=== PATIENT | female | born 1945 | race Caucasian/White ===

== ENCOUNTER 2018-03-10 19:19 | Inpatient (IN) | payer MEDICARE, OTHER ==
[2018-03-10] VITALS (9 sets, daily range): BP systolic 134–146; BP diastolic 78–86; BMI 25.5
[~2018-03-10] VITALS: Ht 165.1 cm; Wt 70.5 kg
--- NOTE | ~2018-03-10 | MORECARE ---
CASE MANAGEMENT DISCHARGE SUMMARY PATIENT: CHERI SORIANO UNIT: [id number] ADM DATE: 03/10/18 AGE: 73 : 45 SEX: F ROOM/BED: D.1213 AUTHOR: RITCHIEDOC PHYSICIAN: REFERRING PHYSICIAN: ROMEO STEINER MD DATE OF SERVICE: 03/17/18 Discharge Plan Patient Name: CHERI SORIANO Facility: [facility]:[place] : 1945 Planned Disposition: Home or Self Care Anticipated Discharge Date: Discharge Date: Expected LOS: Initial Reviewer: [email or web address] Initial Review Date: 03/15/2018 Generated: 03/17/18 3:20 pm Comments DCP- Discharge Planning Updated by [email or web address]: Jennifer Daniels on 03/17/18 1:[address] IMM explained and served 03/17/18 @ 1300 CM will continue to follow and assist as needed with discharge plans / needs DCP- Discharge Planning Updated by [email or web address]: Jennifer Daniels on 03/15/18 5:[address] Patient Name: CHERI SORIANO Admission Status: Elective Accout number: [id number] Admission Date: 03-10-2018 : 1945 Admission Diagnosis:ACUTE RESPIRATORY FAILURE WITH HYPOXIA Attending: ROMEO STEINER Current LOS: 5 Anticipated DC Date: Planned Disposition: Home or Self Care Primary Insurance: MEDICARE A & B Discharge Planning Comments: CM met with patient at bedside after obtaining verbal consent. Patient states she plans on returning home after discharge. Patient states she will have family transport him home via private vehicle. Patient states that her son will be staying with her a few nights after discharge. Patient denies any discharge needs at this time. Patient may need home 02 setup if still required upon discharge. CM will continue to follow and assist as needed for discharge planning / needs. Physics Instructor: Jennifer Daniels DCPIA - Discharge Planning Initial Assessment Updated by [email or web address]: Jennifer Daniels on 03/15/18 5:59 pm * Is the patient Alert and Oriented? Yes * How many steps to enter\exit or inside your home? * PCP Dr. Whitney * Pharmacy [facility] * Preadmission Environment Home Alone * ADLs Independent * Equipment None * Other Equipment has access to walker and cane * List name and contact numbers for known caregivers / representatives who currently or will assist patient after discharge: Clara Mead [phone] * Verbal permission to speak to the caregivers and representatives has been obtained from the patient. N/A * Community resources currently utilized None * Additional services required to return to the preadmission environment? No * Can the patient safely return to the preadmission environment? Yes * Has this patient been hospitalized within the prior 30 days at any hospital? No Coverage Notice Reviewer: [email or web address] Mir Daniels Notice Issued Date-Time: 03/17/2018 13:00 Notice Type: IM Discharge Notice Notice Delivered To: Patient Relationship to Patient: Self Law Professor Name: Delivery Method: HAND - Hand Delivered Esperanza Days: Prior Verbal Notification: Recipient Understood Notice: Yes Recipient Signature: Yes Med Rec Note Co-signed by Attending: Coverage Notice Comment: Last DP export: 03/15/18 5:07 Patient Name: CHERI SORIANO Page [id number] at 1420 All edits/amendments must be made on the electronic document DICTATION DATE: 03/17/181418 SITE SAFETY MANAGER: HEMANTH 03/17/181418 RPT#: [id number] DC DATE: STATUS: ADM IN [facility] [address] [place] [address] END OF REPORT
--- NOTE | ~2018-03-10 | MORECARE ---
CASE MANAGEMENT DISCHARGE SUMMARY PATIENT: CHERI SORIANO UNIT: [id number] ADM DATE: 03/10/18 AGE: 73 : 45 SEX: F ROOM/BED: D.1213 AUTHOR: LUIS FERNANDO DUGAN PHYSICIAN: REFERRING PHYSICIAN: ROMEO STEINER MD DATE OF SERVICE: 03/15/18 Discharge Plan Patient Name: CHERI SORIANO [facility] 1945 Planned Disposition: Home or Self Care Anticipated Discharge Date: Discharge Date: Expected LOS: Initial Reviewer: [email or web address] Initial Review Date: 03/15/2018 Generated: 03/15/18 7:00 pm DCPIA - Discharge Planning Initial Assessment Updated by [email or web address]: Jennifer Daniels on 03/15/18 5:59 pm * Is the patient Alert and Oriented? Yes * How many steps to enter\exit or inside your home? * PCP Dr. Whitney * Pharmacy [facility] * Preadmission Environment Home Alone * ADLs Independent * Equipment None * Other Equipment has access to walker and cane * List name and contact numbers for known caregivers / representatives who currently or will assist patient after discharge: Clara [place] [phone] * Verbal permission to speak to the caregivers and representatives has been obtained from the patient. N/A * Community resources currently utilized None * Additional services required to return to the preadmission environment? No * Can the patient safely return to the preadmission environment? Yes * Has this patient been hospitalized within the prior 30 days at any hospital? No Patient Name: CHERI SORIANO Page [id number] at 1800 All edits/amendments must be made on the electronic document DICTATION DATE: 03/15/181758 NAVAL AIRCREWMAN TACTICAL HELICOPTER: HEMANTH 03/15/181758 RPT#: [id number] DC DATE: STATUS: ADM IN [facility] [address] [place] [address] END OF REPORT
--- NOTE | ~2018-03-10 | MORECARE ---
CASE MANAGEMENT DISCHARGE SUMMARY PATIENT: CHERI SORIANO UNIT: [id number] ADM DATE: 03/10/18 AGE: 73 : 45 SEX: F ROOM/BED: D.1213 AUTHOR: RITCHIEDOC PHYSICIAN: REFERRING PHYSICIAN: ROMEO STEINER MD DATE OF SERVICE: 03/15/18 Discharge Plan Patient Name: CHERI SORIANO Facility: [facility]:[place] : 1945 Planned Disposition: Home or Self Care Anticipated Discharge Date: Discharge Date: Expected LOS: Initial Reviewer: [email or web address] Initial Review Date: 03/15/2018 Generated: 03/15/18 7:07 pm Comments DCP- Discharge Planning Updated by [email or web address]: Jennifer Daniels on 03/15/18 5:[address] Patient Name: CHERI SORIANO Admission Status: Elective Accout number: [id number] Admission Date: 03-10-2018 : 1945 Admission Diagnosis:ACUTE RESPIRATORY FAILURE WITH HYPOXIA Attending: ROMEO STEINER Current LOS: 5 Anticipated DC Date: Planned Disposition: Home or Self Care Primary Insurance: MEDICARE A & B Discharge Planning Comments: CM met with patient at bedside after obtaining verbal consent. Patient states she plans on returning home after discharge. Patient states she will have family transport him home via private vehicle. Patient states that her son will be staying with her a few nights after discharge. Patient denies any discharge needs at this time. Patient may need home 02 setup if still required upon discharge. CM will continue to follow and assist as needed for discharge planning / needs. Natural Gas Trader: Jennifer Daniels DCPIA - Discharge Planning Initial Assessment Updated by [email or web address]: Jennifer Daniels on 03/15/18 5:59 pm * Is the patient Alert and Oriented? Yes * How many steps to enter\exit or inside your home? * PCP Dr. Whitnye * Pharmacy [facility] * Preadmission Environment Home Alone * ADLs Independent * Equipment None * Other Equipment has access to walker and cane * List name and contact numbers for known caregivers / representatives who currently or will assist patient after discharge: Clara Mead [phone] * Verbal permission to speak to the caregivers and representatives has been obtained from the patient. N/A * Community resources currently utilized None * Additional services required to return to the preadmission environment? No * Can the patient safely return to the preadmission environment? Yes * Has this patient been hospitalized within the prior 30 days at any hospital? No Last DP export: 03/15/18 5:00 Patient Name: CHERI SORIANO Page 01987 at 1807 All edits/amendments must be made on the electronic document DICTATION DATE: 03/15/181806 PRECISION DYER: HEMANTH 03/15/181806 RPT#: [id number] DC DATE: STATUS: ADM IN [facility] [address] [place] [address] END OF REPORT
--- NOTE | ~2018-03-10 | MORECARE ---
CASE MANAGEMENT DISCHARGE SUMMARY PATIENT: CHERI SORIANO UNIT: [id number] ADM DATE: 03/10/18 AGE: 73 : 45 SEX: F ROOM/BED: D.1213 AUTHOR: RITCHIEDOC PHYSICIAN: REFERRING PHYSICIAN: ROMEO STEINER MD DATE OF SERVICE: 03/18/18 Discharge Plan Patient Name: CHERI SORIANO Facility: [facility]:[place] : 1945 Planned Disposition: Home or Self Care Anticipated Discharge Date: Discharge Date: 03/17/2018 Expected LOS: Initial Reviewer: [email or web address] Initial Review Date: 03/15/2018 Generated: 03/18/18 10:56 am Comments DCP- Discharge Planning Updated by [email or web address]: Jennifer Daniels on 03/17/18 1:[address] IMM explained and served 03/17/18 @ 1300 CM will continue to follow and assist as needed with discharge plans / needs DCP- Discharge Planning Updated by [id number]: Jennifer Daniels on 03/15/18 5:[address] Patient Name: CHERI SORIANO Admission Status: Elective Accout number: [id number] Admission Date: 03-10-2018 : 1945 Admission Diagnosis:ACUTE RESPIRATORY FAILURE WITH HYPOXIA Attending: ROMEO STEINER Current LOS: 5 Anticipated DC Date: Planned Disposition: Home or Self Care Primary Insurance: MEDICARE A & B Discharge Planning Comments: CM met with patient at bedside after obtaining verbal consent. Patient states she plans on returning home after discharge. Patient states she will have family transport him home via private vehicle. Patient states that her son will be staying with her a few nights after discharge. Patient denies any discharge needs at this time. Patient may need home 02 setup if still required upon discharge. CM will continue to follow and assist as needed for discharge planning / needs. Toll Booth Operator: Jennifer Daniels DCPIA - Discharge Planning Initial Assessment Updated by [id number]: Jennifer Daniels on 03/15/18 5:59 pm * Is the patient Alert and Oriented? Yes * How many steps to enter\exit or inside your home? * PCP Dr. Whitney * Pharmacy [facility] * Preadmission Environment Home Alone * ADLs Independent * Equipment None * Other Equipment has access to walker and cane * List name and contact numbers for known caregivers / representatives who currently or will assist patient after discharge: Clara Mead [phone] * Verbal permission to speak to the caregivers and representatives has been obtained from the patient. N/A * Community resources currently utilized None * Additional services required to return to the preadmission environment? No * Can the patient safely return to the preadmission environment? Yes * Has this patient been hospitalized within the prior 30 days at any hospital? No Coverage Notice Reviewer: [email or web address] Mir Daniels Notice Issued Date-Time: 03/17/2018 13:00 Notice Type: IM Discharge Notice Notice Delivered To: Patient Relationship to Patient: Self Glaze Carrier Name: Delivery Method: HAND - Hand Delivered Esperanza Days: Prior Verbal Notification: Recipient Understood Notice: Yes Recipient Signature: Yes Med Rec Note Co-signed by Attending: Coverage Notice Comment: Last DP export: 03/17/18 1:20 Patient Name: CHERI SORIANO Page 99907 at 0957 All edits/amendments must be made on the electronic document DICTATION DATE: 03/18/18955 GAS BOOSTER ENGINEER: HEMANTH 03/18/18955 RPT#: [id number] DC DATE:03/17/18 STATUS: DIS IN [facility] [address] [place] [address] END OF REPORT
--- NOTE | ~2018-03-10 | EC ---
PATIENT:CHERI SORIANO DATE OF SERVICE: 03/10/18 SEX: F MEDICAL RECORD: [id number] DATE OF : [birth year] LOCATION:D.M3 D.121 AGE OF PATIENT: 73 ADMISSION DATE: 03/10/18 REFERRING PHYSICIAN: INTERPRETING PHYSICIAN: KEZIA BOUCHER MD ECHOCARDIOGRAM REPORT ECHO CHARGES 4 ECHO COMPLETE Date: 03/11/18 CLINICAL DIAGNOSIS: ASSESS EF/SOB ECHOCARDIOGRAPHIC MEASUREMENTS (adult normal given) AC root (d.<3.7cm) 3.1 cm LV Septum d (<1.2 cm> 1.3 cm Valve Excursion 1.4 cm LV Septum (systole) 1.5 cm Left Atria (s.<4.0cm> 3.3 cm LVPW d(<1.2cm) 1.5 cm RV (d.<2.3cm) 3.8 cm LVPW (sytole) 1.6 cm LV diastole(<5.6CM) 3.8 cm MV E-F(>70mm/sec) cm LV systole 1.9 cm LVOT Diameter 1.7 cm MV exc.(>10mm) 1.6 cm Est.ejection fraction (50-75%) % DOPPLER: LVIT cm/sec A 117 cm/sec E 78.0 cm/sec LA cm/sec RVSP 23 mmHg LVOT 108 cm/sec AOP1/2T m/s Asc. Ao 179 cm/sec RVOT 106 cm/sec RA cm/sec PA 172 cm/sec AV Gradient Peak 12.86mmHg AV Mean 6.79 mmHg AV Area 1.5 cm MV Gradient Peak 8.42 mmHg MV Mean 3.49 mmHg MV Area cm COMMENTS: Digital Community Manager: Haseeb DARLING Routing Equipment Tender: 1 Dr. Boucher TAPE# PACS Pericardial Effusion N DATE OF SERVICE: 03/11/2018 FINDINGS: 1. Left ventricular chamber size is within normal limits. Left ventricular systolic function is normal. Overall ejection fraction estimated at 60%. 2. Left atrium, right atrium, right ventricular chamber sizes within normal limits. 3. Valvular structures have normal structure and motion. 4. Doppler interrogation reveals no significant valvular insufficiency or stenosis. Pulmonary systolic pressure is estimated at 23 mmHg. ECHOCARDIOGRAM REPORT [id number] CHERI SORIANO 5. No evidence of pericardial effusion or left ventricular thrombus. TRANSINT:[id number] Voice Confirmation ID: [id number] DOCUMENT ID: [id number] KEZIA BOUCHER MD at 0924 CC: [id number] DICTATION DATE: 03/11/18 120 TIMBER HEWER: 03/11/18 1216 DIS IN 03/17/18 [place] [id number] [place] [id number]
[2018-03-10] MEDS ORDERED: NIFEDIPINE ER90 MG PO (20:25)
[2018-03-10] MEDS ORDERED: WATER PILL (20:27)
[2018-03-10] MEDS ORDERED: NEXIUM20 MG PO (20:27)
[2018-03-10] MEDS ORDERED: SPIRIVA RESPIMAT4 G1 INH (20:28)
[2018-03-10] MEDS ORDERED: PROVENTIL/2.5 MG/3 M INH (20:30)
[2018-03-10] MEDS ORDERED: ADVAIR HFA 230-12 GM INH (20:30)
[2018-03-11] VITALS (25 sets, daily range): BP systolic 109–143; BP diastolic 55–96; Ht 165.1 cm; Wt 70.5 kg
[2018-03-11 05:02] LABS: BASOPHILS 0.1 % (0-2); EOSINOPHILS 0 % (0-7); HEMATOCRIT 37.7 % (36.0-48.0); HEMOGLOBIN 12.4 g/dL (12-16); IMMATURE GRANULOCYTES 2.2 % (0-5); LYMPHOCYTES 10.6 % (15-50); MCHC 32.9 g/dL (31.0-37.0); MCV 85.1 fL (80.0-100.0); MONOCYTES 3.6 % (2-11); NEUTROPHILS 83.5 % (40-80); PLATELET COUNT 362 10x3/uL (130-400); RBC 4.43 10x6/uL (4.00-5.40); WBC 7.8 10x3/uL (4.8-10.8)
[2018-03-11 05:29] LABS: ALBUMIN 2.8 g/dL (3.4-5.0); ANION GAP 13.4 mmol/L (8-16); BILIRUBIN - TOTAL 0.24 mg/dL (0.2-1.3); CALCIUM 7.7 mg/dL (8.5-10.1); CARBON DIOXIDE 28.8 mmol/L (21.0-32.0); CREATININE - SERUM 0.8 mg/dL (0.6-1.3); POTASSIUM - SERUM 3.2 mmol/L (3.5-5.1); PROTEIN - SERUM 7.5 g/dL (6.4-8.2)
[2018-03-11 06:16] LABS: APPEARANCE CLEAR (CLEAR); BACTERIA FEW /hpf (NONE SEEN); BILIRUBIN NEGATIVE (NEGATIVE); COLOR YELLOW (YELLOW); EPITHELIAL CELLS OCC /hpf (0-5); GLUCOSE NEGATIVE (NEGATIVE); GRANULAR CAST OCC /lpf (NONE SEEN); KETONE MODERATE mg/dL (NEGATIVE); MUCUS <1+ /lpf (NONE SEEN); NITRITE NEGATIVE (NEGATIVE); PROTEIN NEGATIVE (NEGATIVE); SPECIFIC GRAVITY 1.015 (1.005-1.020); UROBILINOGEN NORMAL (NORMAL); WHITE CELLS - URINE OCC /hpf (0-5)
[2018-03-11 06:17] LABS: AMORPHOUS SEDIMENT <1+ /lpf (NONE SEEN)
[2018-03-12] VITALS (13 sets, daily range): BP systolic 118–169; BP diastolic 52–95
[2018-03-12 03:50] LABS: BASOPHILS 0.1 % (0-2); EOSINOPHILS 0 % (0-7); HEMATOCRIT 35.9 % (36.0-48.0); HEMOGLOBIN 11.5 g/dL (12-16); IMMATURE GRANULOCYTES 3.5 % (0-5); LYMPHOCYTES 10.8 % (15-50); MCH 27.6 pg (26.0-34.0); MCV 86.1 fL (80.0-100.0); MEAN PLATELET VOLUME 10.5 fL (7.4-10.4); MONOCYTES 10.8 % (2-11); NEUTROPHILS 74.8 % (40-80); PLATELET COUNT 392 10x3/uL (130-400); RBC 4.17 10x6/uL (4.00-5.40); RDW 13.3 % (11.5-14.5)
[2018-03-12 03:53] LABS: WBC 11.6 10x3/uL (4.8-10.8)
[2018-03-12 04:16] LABS: ALBUMIN 2.7 g/dL (3.4-5.0); ANION GAP 13.3 mmol/L (8-16); BILIRUBIN - TOTAL 0.21 mg/dL (0.2-1.3); CALCIUM 7.5 mg/dL (8.5-10.1); CREATININE - SERUM 0.8 mg/dL (0.6-1.3); MAGNESIUM - SERUM 2.7 mg/dL (1.8-2.4); PHOSPHOROUS 2.3 mg/dL (2.5-4.9); POTASSIUM - SERUM 4.3 mmol/L (3.5-5.1); PROTEIN - SERUM 7.1 g/dL (6.4-8.2)
[2018-03-13] VITALS: BP 154/80
[2018-03-13 03:00] VITALS: BP 132/73
[2018-03-13 03:44] LABS: BASOPHILS 0.3 % (0-2); EOSINOPHILS 0 % (0-7); HEMATOCRIT 34.9 % (36.0-48.0); HEMOGLOBIN 11.3 g/dL (12-16); LYMPHOCYTES 10.2 % (15-50); MCHC 32.4 g/dL (31.0-37.0); MCV 86.4 fL (80.0-100.0); MEAN PLATELET VOLUME 10.1 fL (7.4-10.4); MONOCYTES 8.9 % (2-11); NEUTROPHILS 74.6 % (40-80); PLATELET COUNT 318 10x3/uL (130-400); RBC 4.04 10x6/uL (4.00-5.40); RDW 13.4 % (11.5-14.5); WBC 9.3 10x3/uL (4.8-10.8)
[2018-03-13 03:56] LABS: ALBUMIN 2.6 g/dL (3.4-5.0); ALKALINE PHOSPHATASE 54 U/L (46-116); ALT (SGPT) 21 U/L (10-68); BILIRUBIN - TOTAL 0.22 mg/dL (0.2-1.3); CALC OSMOLALITY 276 mosm/kg (275-300); CARBON DIOXIDE 28.4 mmol/L (21.0-32.0); CHLORIDE - SERUM 102 mmol/L (98-107); CREATININE - SERUM 0.7 mg/dL (0.6-1.3); GLUCOSE 138 mg/dL (74-106); POTASSIUM - SERUM 3.8 mmol/L (3.5-5.1); PROTEIN - SERUM 6.5 g/dL (6.4-8.2); SODIUM 137 mmol/L (136-145); UREA NITROGEN 14 mg/dL (7-18); eGFR NON AFRICAN AMERICAN 87 mL/min (90-120)
[2018-03-13 07:00] VITALS: BP 120/68
[2018-03-13 11:10] VITALS: BP 122/68
[2018-03-13 20:33] VITALS: BP 128/78
[2018-03-14 00:04] VITALS: BP 139/74
[2018-03-14 06:35] LABS: BASOPHILS 0.1 % (0-2); EOSINOPHILS 0 % (0-7); HEMOGLOBIN 10.9 g/dL (12-16); IMMATURE GRANULOCYTES 5.1 % (0-5); LYMPHOCYTES 9.1 % (15-50); MCH 27.6 pg (26.0-34.0); MCHC 32.1 g/dL (31.0-37.0); MCV 86.1 fL (80.0-100.0); MEAN PLATELET VOLUME 10.2 fL (7.4-10.4); MONOCYTES 7.6 % (2-11); NEUTROPHILS 78.1 % (40-80); PLATELET COUNT 289 10x3/uL (130-400); RBC 3.95 10x6/uL (4.00-5.40); RDW 13.7 % (11.5-14.5); WBC 8.6 10x3/uL (4.8-10.8)
[2018-03-14 06:59] VITALS: BP 142/71
[2018-03-14 07:09] LABS: % SATURATION 14 % (15-55); IRON 31 ug/dl (35-150); TOTAL IRON BIND CAPACITY 216 ug/dl (260-445); UNSAT IRON BIND CAPACITY 185 ug/dl (150-375)
[2018-03-14 07:16] LABS: ALBUMIN 2.5 g/dL (3.4-5.0); ALKALINE PHOSPHATASE 50 U/L (46-116); ALT (SGPT) 20 U/L (10-68); BILIRUBIN - TOTAL 0.21 mg/dL (0.2-1.3); CARBON DIOXIDE 26.4 mmol/L (21.0-32.0); CHLORIDE - SERUM 103 mmol/L (98-107); CREATININE - SERUM 0.7 mg/dL (0.6-1.3); FERRITIN 60 ng/mL (3-244); GLUCOSE 120 mg/dL (74-106); POTASSIUM - SERUM 3.8 mmol/L (3.5-5.1); PROTEIN - SERUM 6.4 g/dL (6.4-8.2); SODIUM 139 mmol/L (136-145); eGFR NON AFRICAN AMERICAN 87 mL/min (90-120)
[2018-03-14 07:21] LABS: CALC OSMOLALITY 277 mosm/kg (275-300); CALCIUM 6.9 mg/dL (8.5-10.1); UREA NITROGEN 10 mg/dL (7-18)
[2018-03-14 08:00] VITALS: BP 129/72
[2018-03-14 12:00] VITALS: BP 120/56
[2018-03-14 16:00] VITALS: BP 141/69
[2018-03-14 19:51] VITALS: BP 135/67
[2018-03-15] VITALS: BP 140/73
[2018-03-15 04:00] VITALS: BP 142/76
[2018-03-15 05:39] LABS: BASOPHILS 0.2 % (0-2); EOSINOPHILS 0 % (0-7); HEMATOCRIT 34.6 % (36.0-48.0); IMMATURE GRANULOCYTES 4.9 % (0-5); LYMPHOCYTES 9.9 % (15-50); MCH 27.4 pg (26.0-34.0); MCHC 31.8 g/dL (31.0-37.0); MCV 86.3 fL (80.0-100.0); MEAN PLATELET VOLUME 10.2 fL (7.4-10.4); MONOCYTES 7.5 % (2-11); NEUTROPHILS 77.5 % (40-80); PLATELET COUNT 313 10x3/uL (130-400); RBC 4.01 10x6/uL (4.00-5.40); RDW 13.7 % (11.5-14.5); WBC 8.6 10x3/uL (4.8-10.8)
[2018-03-15 06:16] LABS: ALBUMIN 2.5 g/dL (3.4-5.0); BILIRUBIN - TOTAL 0.25 mg/dL (0.2-1.3); CARBON DIOXIDE 27.1 mmol/L (21.0-32.0); POTASSIUM - SERUM 4.1 mmol/L (3.5-5.1); PROTEIN - SERUM 6.1 g/dL (6.4-8.2)
[2018-03-15 06:34] LABS: CREATININE - SERUM 0.9 mg/dL (0.6-1.3)
[2018-03-15 06:35] LABS: CALCIUM 6.8 mg/dL (8.5-10.1)
[2018-03-15 12:00] VITALS: BP 144/75
[2018-03-15 16:00] VITALS: BP 126/65
[2018-03-15 19:57] VITALS: BP 124/70
[2018-03-16] VITALS: BP 155/86
[2018-03-16 04:00] VITALS: BP 128/65
[2018-03-16 06:11] LABS: BASOPHILS 0.3 % (0-2); EOSINOPHILS 0 % (0-7); HEMATOCRIT 33.5 % (36.0-48.0); HEMOGLOBIN 10.6 g/dL (12-16); IMMATURE GRANULOCYTES 3.7 % (0-5); MCH 27.4 pg (26.0-34.0); MCHC 31.6 g/dL (31.0-37.0); MCV 86.6 fL (80.0-100.0); MEAN PLATELET VOLUME 9.9 fL (7.4-10.4); MONOCYTES 5.3 % (2-11); NEUTROPHILS 81.7 % (40-80); PLATELET COUNT 251 10x3/uL (130-400); RBC 3.87 10x6/uL (4.00-5.40); RDW 13.9 % (11.5-14.5); WBC 7.9 10x3/uL (4.8-10.8)
[2018-03-16 06:42] LABS: ALBUMIN 2.5 g/dL (3.4-5.0); ALKALINE PHOSPHATASE 44 U/L (46-116); ALT (SGPT) 17 U/L (10-68); BILIRUBIN - TOTAL 0.24 mg/dL (0.2-1.3); CALC OSMOLALITY 277 mosm/kg (275-300); CARBON DIOXIDE 27.7 mmol/L (21.0-32.0); CHLORIDE - SERUM 104 mmol/L (98-107); GLUCOSE 125 mg/dL (74-106); POTASSIUM - SERUM 3.9 mmol/L (3.5-5.1); PROTEIN - SERUM 5.7 g/dL (6.4-8.2); SODIUM 139 mmol/L (136-145); UREA NITROGEN 9 mg/dL (7-18)
[2018-03-16 06:43] LABS: CREATININE - SERUM 0.6 mg/dL (0.6-1.3); eGFR NON AFRICAN AMERICAN > 90 mL/min (90-120)
[2018-03-16 06:45] LABS: CALCIUM 6.5 mg/dL (8.5-10.1)
[2018-03-16 08:28] VITALS: BP 122/65
[2018-03-16 15:48] VITALS: BP 129/70
[2018-03-16 16:14] LABS: IMMUNOGLOBULIN E 4527 IU/mL (0-100)
[2018-03-16 20:25] VITALS: BP 129/68
[2018-03-17 00:33] VITALS: BP 128/68
[2018-03-17 05:19] VITALS: BP 139/70
[2018-03-17 05:26] LABS: BASOPHILS 0.1 % (0-2); EOSINOPHILS 1.2 % (0-7); HEMATOCRIT 32.9 % (36.0-48.0); HEMOGLOBIN 10.4 g/dL (12-16); LYMPHOCYTES 21.3 % (15-50); MCH 27.2 pg (26.0-34.0); MCHC 31.6 g/dL (31.0-37.0); MCV 86.1 fL (80.0-100.0); MONOCYTES 10.7 % (2-11); NEUTROPHILS 62.7 % (40-80); PLATELET COUNT 272 10x3/uL (130-400); RBC 3.82 10x6/uL (4.00-5.40); RDW 14.2 % (11.5-14.5); WBC 8.4 10x3/uL (4.8-10.8)
[2018-03-17 05:54] LABS: ALBUMIN 2.5 g/dL (3.4-5.0); ALKALINE PHOSPHATASE 42 U/L (46-116); ALT (SGPT) 19 U/L (10-68); BILIRUBIN - TOTAL 0.26 mg/dL (0.2-1.3); CALC OSMOLALITY 276 mosm/kg (275-300); CARBON DIOXIDE 27.4 mmol/L (21.0-32.0); CHLORIDE - SERUM 105 mmol/L (98-107); CREATININE - SERUM 0.7 mg/dL (0.6-1.3); GLUCOSE 98 mg/dL (74-106); PROTEIN - SERUM 5.7 g/dL (6.4-8.2); SODIUM 140 mmol/L (136-145); UREA NITROGEN 8 mg/dL (7-18); eGFR NON AFRICAN AMERICAN 87 mL/min (90-120)
[2018-03-17 05:59] LABS: POTASSIUM - SERUM 3.1 mmol/L (3.5-5.1)
[2018-03-17 06:00] LABS: CALCIUM 6.5 mg/dL (8.5-10.1)
[2018-03-17 07:19] VITALS: BP 144/83
[2018-03-17 11:34] VITALS: BP 141/60
[2018-03-17] MEDS ORDERED: DALIRESP500 MCG PO (15:59)
[2018-03-17] MEDS ORDERED: BENZONATATE200 MG PO (15:59)
[2018-03-17] MEDS ORDERED: PREDNISONE10 MG PO (15:59)
[2018-03-17] MEDS ORDERED: SINGULAIR10 MG PO (15:59)
== END 2018-03-17 16:50 | disposition home or self-care (01) | DRG 177 ==
LOC: D.ICU 19:19 → D.M3 03-13 17:55
PROVIDERS: Emergency Medicine; Internal Medicine Nephrology; Internal Medicine Pulmonary Disease
DX: J15.6 Pneumonia due to other Gram-negative bacteria (principal); J96.01 Acute respiratory failure with hypoxia; E87.1 Hypo-osmolality and hyponatremia; J15.212 Pneumonia due to Methicillin resistant Staphylococcus aureus; J13 Pneumonia due to Streptococcus pneumoniae; E87.6 Hypokalemia; K44.9 Diaphragmatic hernia without obstruction or gangrene; E78.5 Hyperlipidemia, unspecified; K21.9 Gastro-esophageal reflux disease without esophagitis; I10 Essential (primary) hypertension; J43.9 Emphysema, unspecified; D50.9 Iron deficiency anemia, unspecified; R53.81 Other malaise